=== PATIENT | male | born 1995 | race Hispanic/Latino ===

== ENCOUNTER 2017-09-30 08:49 | Emergency (ER) | payer OTHER ==
[2017-09-30 08:53] VITALS: BMI 25.1
[2017-09-30] MEDS ORDERED: Lidocaine 1% Inj (20ml) ONE (09:24)
--- NOTE | 2017-09-30 09:38 | ED PDOC ---
Upper Extremity Pain/Injury Time Seen by Provider: 09/30/17 09:07 Chief Complaint (Nursing): Abnormal Skin Integrity Chief Complaint (Provider): Laceration to left 2nd digit History Per: Patient History/Exam Limitations: no limitations Onset/Duration Of Symptoms: Mins Current Symptoms Are (Timing): Still Present Additional History Per: Patient Additional Complaint(s): 21yo male, no past medical history, presents to ED for evaluation s/p he cut his left 2nd digit while cutting vegetable this morning. Patient denies any numbness, tingling, weakness. He has no other medical complaints. Past Medical History Reviewed: Historical Data, Nursing Documentation, Vital Signs Vital Signs: Last Vital Signs Temp 98.2 F 09/30/17 08:53 Pulse 81 09/30/17 08:53 Resp 16 09/30/17 08:53 BP 119/70 09/30/17 08:53 Pulse Ox 97 09/30/17 08:53 - Medical History PMH: No Chronic Diseases - Surgical History Surgical History: No Surg Hx - Family History Family History: States: No Known Family Hx - Allergies Allergies/Adverse Reactions: Allergies Allergy/AdvReac Type Severity Reaction Status Date / Time No Known Allergies Allergy Verified 09/30/17 09:00 Review of Systems ROS Statement: Except As Marked, All Systems Reviewed And Found Negative Musculoskeletal: Positive for: Other (laceration to left 2nd digit) Neurological: Negative for: Weakness, Numbness Physical Exam - Reviewed Nursing Documentation Reviewed: Yes Vital Signs Reviewed: Yes - Physical Exam Appears: Positive for: Non-toxic, No Acute Distress Head Exam: Positive for: ATRAUMATIC, NORMAL INSPECTION, NORMOCEPHALIC Skin: Positive for: Normal Color Eye Exam: Positive for: Normal appearance Neck: Positive for: Supple Cardiovascular/Chest: Positive for: Regular Rate, Rhythm Respiratory: Negative for: Respiratory Distress Extremity: Positive for: Normal ROM (nl ROM of left 2nd digit), Other (jagged 1.5 cm laceration to distal tip of left 2nd digit). Negative for: Tenderness, Deformity, Swelling Neurologic/Psych: Positive for: Alert, Oriented. Negative for: Motor/Sensory Deficits - ECG O2 Sat by Pulse Oximetry: 97 (RA) Pulse Ox Interpretation: Normal Medical Decision Making Medical Decision Making: Time: 904 Impression: Laceration to left 2nd digit Plan: -- Patient reports tetanus vaccination is up to date. -- See procedure note for wound repair. Time: 1050 Patient declined sutures secondary to insurance issues. Wound irrigated with sterile water and dressed with steri-strips. Patient stable for discharge home. Scribe Attestation: Documented by Angelica Colin acting as a scribe for Jazmyn Delgado MD. Provider Attestation: All medical record entries made by the Scribe were at my direction and personally dictated by me. I have reviewed the chart and agree that the record accurately reflects my personal performance of the history, physical exam, medical decision making, and the department course for this patient. I have also personally directed, reviewed, and agree with the discharge instructions and disposition. Disposition - Clinical Impression Clinical Impression: Finger laceration - Disposition Disposition: Routine/Home Disposition Time: 10:50 Condition: STABLE Additional Instructions: FOLLOW-UP WITH PMD FOR REEVALUATION. TAKE MOTRIN OTC NEEDED FOR PAIN. Instructions: Finger Laceration (ED) Forms: [employer] ([place]ian)
[2017-09-30 11:20] VITALS: BP 120/78; PULSE 78; RESP 18; TEMP 97.6; O2SAT 98
== END 2017-09-30 11:17 | disposition home or self-care (01) ==
LOC: H.ER 08:49
DX: S61.211A Laceration without foreign body of left index finger without damage to nail, initial encounter (principal); W45.8XXA Other foreign body or object entering through skin, initial encounter; Y93.G1 Activity, food preparation and clean up